=== PATIENT | male | born 1985 | race African-American/Black ===

== ENCOUNTER 2022-03-16 18:45 | Emergency (ER) | payer OTHER ==
[~2022-03-16] VITALS: Ht 182.9 cm; Wt 138.3 kg
[2022-03-16] MEDS ORDERED: DEXTROSE 50%-WATER 50 ML DISP.SYRIN ONE (18:52)
[2022-03-16] MEDS: IV NS 0.9% 1,000 ML BAG IV ONE (19:09)
[2022-03-16] MEDS: DEXTROSE 50%-WATER 50 ML DISP.SYRIN IV ONE (19:09)
--- NOTE | 2022-03-16 19:14 | NUR ---
MIDLINE INSERTED ON MARY ANN
--- NOTE | 2022-03-16 19:16 | NUR ---
REQUESTED FOR APPLE JUICE; ABLE TO SWALLOW W/O ISSUES.
[2022-03-16 19:44] LABS: CALCIUM, SERUM 8.7 mg/dL (8.5-10.1); CREATININE 0.8 mg/dL (0.6-1.3)
[2022-03-16 20:13] LABS: BASOPHILS % (AUTO) 0.5 % (0.0-2.0); EOSINOPHILS % (AUTO) 0.8 % (0.0-6.0); HEMATOCRIT 44 % (39-51); HEMOGLOBIN 14.5 g/dL (13.5-17.5); LYMPHOCYTES # (AUTO) 1.6 K/uL (0.8-4.8); LYMPHOCYTES % (AUTO) 25.7 % (20.0-44.0); MEAN CORPUSCULAR HGB CONC 33 g/dl (31.0-36.0); MEAN CORPUSCULAR VOLUME 83 fL (80-96); MONOCYTES # (AUTO) 0.5 K/uL (0.1-1.30); MONOCYTES % (AUTO) 7.6 % (2.0-12.0); NEUTROPHILS % (AUTO) 65.4 % (43.0-81.0); PLATELET COUNT (AUTO) 301 K/uL (150-450); RED BLOOD CELL COUNT(AUTO) 5.27 MIL/uL (4.5-6.0); WHITE BLOOD COUNT (AUTO) 6.1 K/uL (4.3-11.0)
[2022-03-16 20:15] LABS: POTASSIUM 2.7 mmol/L (3.5-5.1)
[2022-03-16] MEDS: POTASSIUM CHLORIDE 20 MEQ TAB.PRT.SR PO ONE (20:30)
--- NOTE | 2022-03-16 21:23 | NUR ---
BS 85
[2022-03-16] MEDS ORDERED: POTASSIUM CHLORIDE 20 MEQ TAB.PRT.SR PO ONE (21:36)
--- NOTE | 2022-03-16 21:42 | NUR ---
Patient discharged to home in stable condition. Written and verbal after care instructions given. Patient verbalizes understanding of instruction. pT ambulatory with a steady gait
[2022-03-16 21:58] VITALS: BP 139/79
== END 2022-03-16 21:42 | disposition home or self-care (01) ==
LOC: ER 20:26
DX: E11.649 Type 2 diabetes mellitus with hypoglycemia without coma (principal)
CPT/HCPCS: 36410; 36415; 80048; 85025; 96374; 99285; A6403 ×2

== ENCOUNTER 2022-11-09 09:05 | Emergency (ER) | payer OTHER ==
[~2022-11-09] VITALS: Ht 193 cm; Wt 113.4 kg
--- NOTE | 2022-11-09 09:44 | NUR ---
PATIENT ARRIVED FOR PROLONGED ERECTION (ABOUT 8-10 HOURS), A/O X 3
[2022-11-09] MEDS ORDERED: LIDOCAINE 1% INJ 50 ML MDV IJ ONE ×2 (10:30→10:43)
--- NOTE | 2022-11-09 11:49 | NUR ---
DR. CAMPO AT BEDSIDE
[2022-11-09] MEDS ORDERED: PHENYLEPHRINE 10 MG/ML VIAL MC ONE (12:00)
[2022-11-09] MEDS ORDERED: PHENYLEPHRINE 10 MG/ML VIAL ONE (12:02)
[2022-11-09] MEDS ORDERED: TERBUTALINE SULFATE 1 MG/ML VIAL SQ ONE (12:30)
[2022-11-09 12:39] LABS: SITE, VBG Other; VBG COHb 0.8 %; VBG MetHb 1.3 %; VBG O2Hb 0.4 %; VENT MODE, VBG ROOM AIR
[2022-11-09] MEDS ORDERED: IBUP-1955 PO (13:09)
--- NOTE | 2022-11-09 13:20 | NUR ---
Patient discharged to home in stable condition. Written and verbal after care instructions given. Patient verbalizes understanding of instruction.
[2022-11-09 13:21] VITALS: BP 132/82
== END 2022-11-09 13:21 | disposition home or self-care (01) ==
LOC: ER 09:08
DX: N48.30 Priapism, unspecified (principal); I10 Essential (primary) hypertension; E11.9 Type 2 diabetes mellitus without complications; Z59.00 Homelessness unspecified; Z79.899 Other long term (current) drug therapy
CPT/HCPCS: 99284; 96372; 82803; J3490; J2370; J3105; A6403